=== PATIENT | female | born 1995 | race African-American/Black ===

== ENCOUNTER 2016-04-12 12:23 | Emergency (ER) | payer MEDICAID ==
--- NOTE | ~2016-04-12 | ER ---
PATIENT'S NAME: JAYY GRAFF [facility] AGE: 20 Y [address] ROOM: [place] [address] LOCATION: [facility] ADMIT DATE: 04/12/2016 ER/Outpatient Report DISCHARGE DATE: 04/12/2016 FAMILY PHYSICIAN: Juwan Lopez MD ATTENDING PHYSICIAN: Eladio Sandra CHIEF COMPLAINT: Abdominal pain. HISTORY OF PRESENT ILLNESS: The patient states that she is , but does not know how long. She does not remember her last menses. She was seen by a local provider in [place] a few days ago and found to be and was told to follow up in few weeks. She does not want to stay in [place] and that is why she came here today. She describes a cramping pain in the right lower side of the abdomen as well as the left, but is more prominent on the right. She has not taken anything. The onset was yesterday. The pain does change in intensity, but never goes away. She rates it at 8/10. PAST MEDICAL HISTORY: Documented on the record and reviewed by me. SOCIAL HISTORY: Documented on the record and reviewed by me. MEDICATIONS: Documented on the record and reviewed by me. ALLERGIES: DOCUMENTED ON THE RECORD AND REVIEWED BY ME. REVIEW OF SYSTEMS: All systems reviewed and negative except as noted in the HPI. PHYSICAL EXAMINATION: VITAL SIGNS: Blood pressure 140/61, pulse 85, respiratory rate 16, temperature 98.6, SpO2 is 96% on room air. Pain is rated 8/10. GENERAL: Age-appropriate female, resting comfortably on exam table on her phone, in no acute pain or distress. NEUROLOGIC: Awake, alert. GCS 15. No focal deficits or asymmetry on exam. HEENT: Normocephalic, atraumatic. Eyes are PERRL. Oropharynx is clear. NECK: Supple. Trachea is midline. CHEST/HEART: Regular rate and rhythm. No murmurs. LUNGS: Clear to auscultation bilaterally with no rhonchi, wheezes, or rales. ABDOMEN: Soft with minimal tenderness in the suprapubic region. Poorly PATIENT'S NAME: JAYY GRAFF [facility] AGE: 20 Y [address] ROOM: [place] [address] LOCATION: [facility] ADMIT DATE: 04/12/2016 ER/Outpatient Report DISCHARGE DATE: 04/12/2016 FAMILY PHYSICIAN: Juwan Lopez MD ATTENDING PHYSICIAN: Eladio Sandra localizable. No pain at McBurney's point. No rebound or guarding appreciated. Bowel sounds are present throughout. BACK: Nontender to palpation throughout. No CVA tenderness. EXTREMITIES: Warm and well perfused without deformities or edema. SKIN: Warm, dry, and intact. LABORATORY DATA AND X-RAYS: Ultrasound of the abdomen reveals a viable intrauterine measuring approximately 6 weeks 6 days today with heart rates in the 130s. There is a right ovarian cyst, with good ovarian blood flow. Labs: Urinalysis catheterized with no leukocytes or nitrite, but a few bacteria. Clean-catch urine was contaminated. Sodium is 138, potassium is 4.0, chloride is 105, CO2 is 23, BUN is 7, creatinine is 0.8. GFR is greater than 60. LFTs are in range. Beta HCG 93945. WBC 10.6, hemoglobin 12.3, platelets of 306. INR is 1.0. Lactate is 1.7. Blood type is pending. IMPRESSION: 1. First trimester without vaginal bleeding, viable intrauterine 6 weeks 6 days today. 2. Right ovarian cyst. 3. Bacteriuria, possible urinary tract infection. EMERGENCY DEPARTMENT COURSE: The patient was evaluated as above. She was given a gram of Tylenol with almost complete resolution of her symptoms. Her abdominal exam remains nonsurgical on reevaluation. At this time, she does not require RhoGAM, I do not think she has ectopic . Presentation not consistent with appendicitis at this time. Recommend close followup. She was given referrals to the local obstetrics providers per her request. She was discharged in good condition and instructed to return immediately if there are any other concerns. MD FRANCISCO DENTON/lety /[id number] d: 04/12/16 2354 t: 04/13/16 1055, OUTPATIENT REPORT
[2016-04-12 13:46] LABS: BILIRUBIN URINE NEGATIVE (NEGATIVE); BLOOD URINE NEGATIVE /UL (NEGATIVE); COLOR URINE YELLOW (YELLOW); GLUCOSE URINE NEGATIVE (NEGATIVE); KETONE URINE NEGATIVE (NEGATIVE); LEUKOCYTES URINE 25 /UL (NEGATIVE); NITRITE URINE NEGATIVE (NEGATIVE); PROTEIN URINE NEGATIVE (NEGATIVE); SPEC GRAVITY URINE 1.015 (1.003-1.035); TURBIDITY URINE 1+ (CLEAR); UROBILINOGEN URINE NORMAL (NORMAL)
[2016-04-12 13:54] LABS: BACTERIA URINE MANY (NEGATIVE); HYALINE CAST URINE 0-2 #/LPF (NEGATIVE); RBC URINE 0-2 #/HPF (NEGATIVE)
[2016-04-12 15:08] LABS: BASOPHIL % 0.2 %; EOSINOPHIL # 0.1 K/uL (0.0-0.5); HEMATOCRIT 39.7 % (33.0-46.0); HEMOGLOBIN 12.3 g/dL (11.0-15.0); IMMATURE GRANULOCYTE % 0.4 %; LYMPHOCYTE # 3.7 K/uL (0.8-4.0); MCH 25.5 pg (27.0-34.0); MCV 82.4 fl (83.0-98.0); MONOCYTE # 0.7 K/uL (0.0-1.0); MPV 10.9 fl (9.4-12.4); NEUTROPHIL % 56.4 %; NRBC % 0 /100WBC (0-0.00); PLATELET COUNT 306 K/uL (150-450); RBC 4.82 M/uL (3.50-5.00); RDW-CV 16.1 % (11.9-14.6); WBC 10.6 K/uL (4.0-11.0)
[2016-04-12 15:16] LABS: PROTIME 10.6 SECONDS (9.6-11.1); PTT 27 SECONDS (25-32)
[2016-04-12 15:28] LABS: ALBUMIN 3.6 gm/dL (3.5-5.0); ALK PHOS 84 IU/L (33-138); ALT 16 IU/L (12-78); AST 12 IU/L (10-40); BLOOD UREA NITROGEN 7 mg/dL (6-24); CALCIUM 8.6 mg/dL (8.5-10.5); CHLORIDE 105 mMol/L (96-110); CO2 23 mMol/L (22-32); CREATININE 0.8 mg/dL (0.5-1.1); ESTIMATED GFR (MDRD EQUATION) > 60; SODIUM 138 mMol/L (135-145); TOTAL BILIRUBIN 0.2 mg/dL (0.0-1.5); TOTAL PROTEIN 7.9 g/dL (6.0-8.4)
[2016-04-12 15:51] LABS: BILIRUBIN URINE NEGATIVE (NEGATIVE); BLOOD URINE NEGATIVE /UL (NEGATIVE); COLOR URINE YELLOW (YELLOW); GLUCOSE URINE NEGATIVE (NEGATIVE); KETONE URINE NEGATIVE (NEGATIVE); LEUKOCYTES URINE NEGATIVE /UL (NEGATIVE); NITRITE URINE NEGATIVE (NEGATIVE); PROTEIN URINE NEGATIVE (NEGATIVE); TURBIDITY URINE CLEAR (CLEAR); UROBILINOGEN URINE NORMAL (NORMAL)
[2016-04-12 15:57] LABS: BACTERIA URINE FEW (NEGATIVE); EPITHELIAL URINE 0-2 #/HPF (NEGATIVE); RBC URINE NEGATIVE #/HPF (NEGATIVE); WBC URINE 0-2 #/HPF (NEGATIVE)
== END 2016-04-12 16:10 | disposition disaster alternative care site (69) ==
LOC: GMED 12:23
PROVIDERS: Emergency Medicine
PROC: 0T9B70Z Drainage of Bladder with Drainage Device, Via Natural or Artificial Opening (ICD-10-PCS; principal; 2016-04-12)
DX: O34.81 Maternal care for other abnormalities of pelvic organs, first trimester (principal); O99.89 Other specified diseases and conditions complicating pregnancy, childbirth and the puerperium; R82.71 Bacteriuria; Z3A.01 Less than 8 weeks gestation of pregnancy

== ENCOUNTER 2016-06-11 12:44 | Emergency (ER) | payer MEDICAID ==
--- NOTE | ~2016-06-11 | ER ---
PATIENT'S NAME: PRERNA [facility] AGE: 20 Y [address] ROOM: [place] [address] LOCATION: [facility] ADMIT DATE: 06/11/2016 ER/Outpatient Report DISCHARGE DATE: 06/11/2016 FAMILY PHYSICIAN: Juwan Lopez MD ATTENDING PHYSICIAN: To Valle Admission date and time documented on the medical record. I saw the patient at 1310 hours. CHIEF COMPLAINT: Uterine cramping. HISTORY OF PRESENT ILLNESS: The patient is a 20-year-old female who is 2, para 1-0-0-1 at around 16 weeks' gestation with her present . Three days ago, she had some cramping with vaginal bleeding, this resolved. She has had some intermittent cramping over the past 2 days, worse today. Presented to the emergency room for evaluation. No nausea, vomiting, diarrhea, or urinary frequency, urgency, or dysuria. No chest pain or shortness of breath. No back pain. No lightheadedness, dizziness, syncope, or near syncope. No fall or trauma. No headache; eyes, ears, nose, throat, neck, or spine pain. No recent coughs, colds, flus, fever, chills, or sweats. No skin eruptions or rash. No joint problems. No neuro changes, psych issues, or endocrine problems. HOME MEDICATIONS: See attached medication list. ALLERGIES: LATEX. SOCIAL HISTORY: Nonsmoker and nondrinker. SIGNIFICANT PAST MEDICAL HISTORY: Asthma. OPERATIONS: None. REVIEW OF SYSTEMS: All systems reviewed by me are negative with the exception of those discussed in the history of present illness. PHYSICAL EXAMINATION: VITAL SIGNS: Temperature 98.5 tympanic, pulse 86, respirations 16, blood PATIENT'S NAME: [place] [facility] AGE: 20 Y [address] ROOM: [place] [address] LOCATION: [facility] ADMIT DATE: 06/11/2016 ER/Outpatient Report DISCHARGE DATE: 06/11/2016 FAMILY PHYSICIAN: Juwan Lopez MD ATTENDING PHYSICIAN: To Valle pressure 123/74, and O2 saturation on room air was 98%. heart tones 160. HEENT: Negative. LUNGS: Clear. HEART: Regular. ABDOMEN: Gravid. Soft and nontender. Good bowel tones. No CVA tenderness. EXTREMITIES: Intact. NEUROVASCULAR: Intact. SKIN: Clear. LABORATORY DATA: White count was 9400, 59 segs, 31 lymphs, 8 monos, 1 eosinophil; hemoglobin is 11.4 with hematocrit 35.7; and platelet count is 254,000. CMS was normal except for a slight low potassium of 3.5 and anion gap at 9.5. Quantitative HCG was 27,972. Ultrasound of the pelvis showed an intrauterine of 15 weeks 6 days. Fetus was normal. Normal activity. Heart rate was 162. Placenta was in the fundus. There was noted to be some Tani Da Silva contractions in that area. Ultrasound was read by Radiology, see dictated transcribed report. IMPRESSION: Intrauterine at 15 weeks 6 days with Tani Da Silva uterine contractions, with vaginal bleeding and spotting for 1 day 3 days ago, none since that time over the past 2 days. PLAN: The patient dismissed home. Observation. Activity as tolerated. Continue present home medications and care. Fluids and diet as tolerated. Follow up with personal physician as needed or as scheduled. Discussion ensued with the patient concerning my findings and recommendations, she understands. MD ANJALI BURKS/modl /[id number] d: 06/11/16 2134 t: 06/12/16 0610, OUTPATIENT REPORT
[2016-06-11 13:53] LABS: BASOPHIL % 0.1 %; EOSINOPHIL # 0.1 K/uL (0.0-0.5); HEMATOCRIT 35.7 % (33.0-46.0); HEMOGLOBIN 11.4 g/dL (11.0-15.0); IMMATURE GRANULOCYTE % 0.3 %; LYMPHOCYTE % 31.4 %; MCH 26.4 pg (27.0-34.0); MCHC 31.9 gm/dL (32.0-36.5); MCV 82.6 fl (83.0-98.0); MONOCYTE # 0.7 K/uL (0.0-1.0); MONOCYTE % 7.9 %; MPV 11.2 fl (9.4-12.4); NEUTROPHIL # (ANC) 5.6 K/uL (1.8-7.8); NEUTROPHIL % 59.3 %; NRBC % 0 /100WBC (0-0.00); PLATELET COUNT 254 K/uL (150-450); RBC 4.32 M/uL (3.50-5.00); RDW-CV 15.8 % (11.9-14.6); WBC 9.4 K/uL (4.0-11.0)
[2016-06-11 14:12] LABS: ALK PHOS 63 IU/L (33-138); ALT 14 IU/L (12-78); ANION GAP 9.5 (10.0-19.0); AST 10 IU/L (10-40); BLOOD UREA NITROGEN 5 mg/dL (6-24); CALCIUM 8.7 mg/dL (8.5-10.5); CHLORIDE 106 mMol/L (96-110); CO2 27 mMol/L (22-32); CREATININE 0.7 mg/dL (0.5-1.1); ESTIMATED GFR (MDRD EQUATION) > 60; POTASSIUM 3.5 mMol/L (3.7-5.1); SODIUM 139 mMol/L (135-145); TOTAL PROTEIN 7.1 g/dL (6.0-8.4)
[2016-06-11 14:13] LABS: TOTAL BILIRUBIN 0.1 mg/dL (0.0-1.5)
== END 2016-06-11 15:07 | disposition disaster alternative care site (69) ==
LOC: GMED 12:44
PROVIDERS: Emergency Medicine
DX: O62.9 Abnormality of forces of labor, unspecified (principal); O46.92 Antepartum hemorrhage, unspecified, second trimester; O99.512 Diseases of the respiratory system complicating pregnancy, second trimester; J45.909 Unspecified asthma, uncomplicated; Z3A.15 15 weeks gestation of pregnancy